=== PATIENT | male | born 2000 | race Two or more races ===

== ENCOUNTER 2023-11-06 16:28 | Emergency (ER) | payer MEDICAID, OTHER ==
[~2023-11-06] VITALS: Ht 170.2 cm; Wt 57.9 kg
[2023-11-06 19:15] VITALS: BP 98/60; TEMP 98.1; O2SAT 98
[2023-11-06] MEDS ORDERED: IBUP1TAB5 PO (19:22)
[2023-11-06 20:09] VITALS: PULSE 84; RESP 18
[2023-11-06] MEDS: diphenhdrAMINE HCL 50 MG/1 ML VL IM ONE (20:11)
[2023-11-06] MEDS: PROCHLORPERAZINE EDISYLATE 5 MG/ML 2ML VIAL IM ONE (20:12)
[2023-11-06] MEDS: KETOROLAC TROMETH 30 MG/ML 1ML VIAL IM ONE (20:13)
[2023-11-06] MEDS: DexAMETHasone SOD PHOS 10MG/1ML VIAL INJ IM ONE (20:13)
== END 2023-11-06 20:46 | disposition home or self-care (01) ==
LOC: ER 16:31
DX: G43.909 Migraine, unspecified, not intractable, without status migrainosus (principal)
CPT/HCPCS: 96372; 99284; J0780; J1100; J1200; J1885

== ENCOUNTER 2023-11-17 10:29 | Emergency (ER) | payer MEDICAID ==
[~2023-11-17] VITALS: Ht 175.3 cm; Wt 56.4 kg
[~2023-11-17 10:29] MED LIST: IBUP1TAB5 PO
[2023-11-17 12:33] VITALS: TEMP 98
[2023-11-17] MEDS ORDERED: AUG875T PO (14:52)
[2023-11-17] MEDS ORDERED: METH4PAK PO (14:52)
[2023-11-17] MEDS ORDERED: NAPR-746 PO (14:52)
[2023-11-17] MEDS: SUMAtriptan SUCCINATE 6 MG/0.5 ML VL SC ONE (14:58)
[2023-11-17 15:00] VITALS: BP 124/83; PULSE 73; RESP 18; O2SAT 98
== END 2023-11-17 15:05 | disposition home or self-care (01) ==
LOC: ER 10:31
DX: J34.89 Other specified disorders of nose and nasal sinuses (principal); R51.9 Headache, unspecified
CPT/HCPCS: 70450; 96372; 99285; J3030

== ENCOUNTER 2023-12-24 16:29 | Emergency (ER) | payer MEDICAID ==
[~2023-12-24] VITALS: Ht 167.6 cm; Wt 60.5 kg
[~2023-12-24 16:29] MED LIST changes: +AUG875T PO; +METH4PAK PO; +NAPR-746 PO
[2023-12-24] MEDS ORDERED: PRED20TA2 PO (17:24)
[2023-12-24] MEDS ORDERED: BACDST PO (17:24)
[2023-12-24] MEDS ORDERED: IBUP-1454 PO (17:24)
[2023-12-24 17:29] VITALS: BP 110/72; PULSE 69; RESP 18; TEMP 97.4; O2SAT 95
[2023-12-24] MEDS: cefTRIAXone SOD 1,000 MG VL IM ONE (17:43)
[2023-12-24] MEDS: methylPREDNISolone SOD SUCC 125 MG/2 ML VL IM ONE (17:44)
== END 2023-12-24 17:50 | disposition home or self-care (01) ==
LOC: ER 16:29
DX: J01.00 Acute maxillary sinusitis, unspecified (principal); Z79.899 Other long term (current) drug therapy
CPT/HCPCS: 96372; 99284; J0696; J2919